=== PATIENT | female | born 1990 | race American Indian/Alaskan Native ===

== ENCOUNTER 2017-11-08 23:33 | Emergency (ER) | payer MEDICAID ==
[2017-11-09 02:24] LABS: Basophils # (Auto) 0.1 K/mm3 (0.0-0.1); Basophils % (Auto) 0.8 % (0.0-1.8); Eosinophils # (Auto) 0.1 K/mm3 (0.0-0.4); Eosinophils % (Auto) 0.9 % (0.0-4.3); Hematocrit 38.9 % (30.3-42.9); Hemoglobin 13.1 gm/dl (10.1-14.3); Lymphocytes # (Auto) 2.6 K/mm3 (1.2-5.4); Lymphocytes % (Auto) 35.7 % (13.4-35.0); Mean Corpuscular HGB Conc 34 % (30-34); Mean Corpuscular Hemoglobin 29 pg (28-32); Mean Corpuscular Volume 87 fl (79-97); Monocytes # (Auto) 0.8 K/mm3 (0.0-0.8); Monocytes % (Auto) 11.1 % (0.0-7.3); Platelet Count 293 K/mm3 (140-440); Red Blood Count 4.49 M/mm3 (3.65-5.03); Red Cell Distribution Width 13.7 % (13.2-15.2)
[2017-11-09 03:59] VITALS: BP 126/87
[2017-11-09 04:41] LABS: Bacteria,Urine 1+ /HPF (Negative); Bilirubin,Urine NEG (Negative); Blood,Urine SM (Negative); Color,Urine Yellow (Yellow); Mucus,Urine FEW /HPF; Protein,Urine <15 mg/dL mg/dL (Negative); WBC,Urine < 1.0 /HPF (0.0-6.0)
[2017-11-09 09:14] LABS: BUN/Creatinine Ratio 5; Blood Urea Nitrogen 4 mg/dL (7-17); Calcium 9.5 mg/dL (8.4-10.2); Hemolysis Index 13
--- NOTE | 2017-11-09 09:36 | Ultrasound Report ---
ULTRASOUND OB LESS THAN 14 WEEKS - TRANSABDOMINAL AND TRANSVAGINAL INDICATION: Vaginal bleeding. Serum beta-hCG 8,527 units. COMPARISON: None similar at this institution. FINDINGS: Transabdominal and transvaginal pelvic sonography performed in this patient with LMP of 09/28/2017 and estimated menstrual age of 6 weeks and 0 days. A 9.4 x 5.1 x 5.9 cm retroverted uterus demonstrates a single cystic focus along the endometrium without evidence of a pole at this time. Small yolk sac possible. Mean gestational sac diameter of 1.2 cm corresponds to 6 weeks and zero days. Approximately 1.8 x 0.5 x 1.5 cm heterogeneity inferior to the gestational sac may represent a subchorionic hemorrhage, endovaginal image 15. Minimal pelvic free fluid. Right ovary is 3 x 2.1 x 1.9 cm with an intrinsic 2.1 x 1.8 cm thickwalled cyst, endovaginal image 21, possibly the corpus luteum. Unremarkable 2.4 x 2 x 2 cm left ovary. CONCLUSION: 1. Sonographic findings may represent an intrauterine gestational sac/early estimated at 6 weeks and zero days with an EDC of 07/05/2018, though a missed not entirely excluded at this time as viability has not been confirmed. 2. Right ovarian cyst. Please also correlate clinically, with serial serum beta-hCG values and/or followup sonogram, as warranted. Thank you for the opportunity to participate in this patient's care.
--- NOTE | 2017-11-09 09:56 | Emergency Department Report ---
ED HPI - General Chief complaint: Vaginal Bleeding Stated complaint: VAG BLEEDING; 6WKS GEST Time Seen by Provider: 11/09/17 08:11 Source: patient Mode of arrival: Ambulatory Limitations: No Limitations - History of Present Illness Initial comments: This is a 27-year-old female nontoxic, well nourished in appearance, no acute signs of distress presents to the ED with c/o of vaginal bleeding. Patient stated she had a sexual intercourse last night around 2300 and then had 1 episode so light vaginal bleeding. Patient currently denies any vaginal bleeding. Patient stated she is currently 6 weeks . Patient stated roy seen a [facility] with normal exa patient denies any abdominal pain, back pain, fever, chills, nausea, vomiting, chest pain or shortness of breath. Patient denies past medical history. MD Complaint: vaginal bleeding -: Last night Radiation: none Severity scale (0 -10): 0 Consistency: now resolved Improves with: none Worsens with: none Associated symptoms: vaginal bleeding. denies: nausea/vomiting, vaginal discharge, abdominal pain, dysuria, headache, vision changes, malaise, dysparuenia, rash, seizure, shortness of breath, syncope, weakness Vaginal bleeding: none :: Yes Number of weeks : 6 OB History - Current : no complications OB History - Previous Pregnancies: no complications Pre- care: followed by OB - Related Data : 4 Para: 1 Home Medications Medication Instructions Recorded Confirmed Last Taken No Known Home Medications [No 09/08/15 09/08/15 Unknown Reported Home Medications] Allergies Allergy/AdvReac Type Severity Reaction Status Date / Time fluoxetine HCl [From Prozac] Allergy ringing in Verified 08/18/15 11:46 ears promethazine HCl Allergy Shortness Verified 08/18/15 11:46 [From Phenergan] of Breath ED Review of Systems ROS: Stated complaint: VAG BLEEDING; 6WKS GEST Other details as noted in HPI Constitutional: denies: chills, fever Eyes: denies: eye pain, eye discharge, vision change ENT: denies: ear pain, throat pain Respiratory: denies: cough, shortness of breath, wheezing Cardiovascular: denies: chest pain, palpitations Endocrine: no symptoms reported Gastrointestinal: denies: abdominal pain, nausea, diarrhea Genitourinary: denies: urgency, dysuria, discharge Musculoskeletal: denies: back pain, joint swelling, arthralgia Skin: denies: rash, lesions Neurological: denies: headache, weakness, paresthesias Psychiatric: denies: anxiety, depression Hematological/Lymphatic: denies: easy bleeding, easy bruising ED Past Medical Hx - Past Medical History Previous Medical History?: Yes Hx Hypertension: No Hx GERD: Yes Hx Renal Disease: No Hx Seizures: No Hx Asthma: No - Surgical History Past Surgical History?: Yes Additional Surgical History: c section, - Social History Smoking Status: Never Smoker Substance Use Type: None - Medications Home Medications: Home Medications Medication Instructions Recorded Confirmed Last Taken Type No Known Home Medications [No 09/08/15 09/08/15 Unknown History Reported Home Medications] ED Physical Exam - General Limitations: No Limitations General appearance: alert, in no apparent distress - Head Head exam: Present: atraumatic, normocephalic - Eye Eye exam: Present: normal appearance Pupils: Present: normal accommodation - ENT ENT exam: Present: normal exam, mucous membranes moist - Neck Neck exam: Present: normal inspection, full ROM - Respiratory Respiratory exam: Present: normal lung sounds bilaterally. Absent: respiratory distress, wheezes, rales, rhonchi, stridor - Cardiovascular Cardiovascular Exam: Present: regular rate, normal rhythm, normal heart sounds. Absent: irregular rhythm, systolic murmur, diastolic murmur, rubs, gallop - GI/Abdominal GI/Abdominal exam: Present: soft, normal bowel sounds. Absent: distended, tenderness, guarding, rebound, rigid, diminished bowel sounds - Extremities Exam Extremities exam: Present: normal inspection, full ROM - Back Exam Back exam: Present: normal inspection, full ROM. Absent: tenderness, CVA tenderness (R), CVA tenderness (L), muscle spasm, paraspinal tenderness, vertebral tenderness, rash noted - Neurological Exam Neurological exam: Present: alert, oriented X3, normal gait - Psychiatric Psychiatric exam: Present: normal affect, normal mood - Skin Skin exam: Present: warm, dry, intact, normal color. Absent: rash ED Course Vital Signs 11/09/17 11/09/17 11/09/17 00:43 01:52 03:58 Temperature 97.9 F 97.9 F 97.7 F Pulse Rate 92 H 92 H 85 Respiratory 18 18 12 Rate Blood Pressure 114/71 114/71 126/87 O2 Sat by Pulse 100 100 100 Oximetry - Reevaluation(s) Reevaluation #1: 11/09/17 09:55 Patient is speaking in full sentences with no signs of distress noted. ED Medical Decision Making - Lab Data Result diagrams: 11/09/17 02:06 11/09/17 02:04 - Medical Decision Making This is a 27-year-old female that presents with threatened miscarriage. Patient is stable and was examined by me. Ultrasound has been obtained and detailed by the radiologist with normal IUP with estimated 6 weeks 0 days. Quantitative serum test of 8500. Patient was notified of the report with noted by the patient. Patient was instructed to return and 2 days for a reevaluation of serum quantitative test and possible ultrasound. Patient was instructed to refer to Follow-up with a [facility] in 2 days or if symptoms worsen and continue return to emergency room as soon as possible. At time of discharge , the patient does not seem toxic or ill in appearance. No acute signs of distress noted. Patient agrees to discharge treatment plan of care. No further questions noted by the patient. Critical care attestation.: If time is entered above; I have spent that time in minutes in the direct care of this critically ill patient, excluding procedure time. ED Disposition Clinical Impression: Threatened miscarriage Disposition: DC-01 TO HOME OR SELFCARE Is pt being admited?: No Does the pt Need Aspirin: No Condition: Stable Instructions: Threatened Miscarriage (ED) Additional Instructions: Follow-up with a [facility] in 2 days or if symptoms worsen and continue return to emergency room as soon as possible. Your quantitative serum test today is 8527. Referrals: PRIMARY MD YVAN [Primary Care Provider] - 3-5 Days [facility] [Outside] - 3-5 Days LUIS FELIPE MONTENEGRO MD [Staff Physician] - 2-3 Days [facility] [Provider Group] - 2-3 Days Forms: Work/School Release Form(ED)
== END 2017-11-09 10:10 | disposition home or self-care (01) ==
LOC: ED 23:33
DX: O20.0 Threatened abortion (principal); Z3A.01 Less than 8 weeks gestation of pregnancy; K21.9 Gastro-esophageal reflux disease without esophagitis
CPT/HCPCS: 36415; 76801; 76817; 80048; 81001; 84702; 85025; 86850; 86900; 86901; 99284

== ENCOUNTER 2020-11-17 15:42 | Emergency (ER) | payer SELFPAY ==
[2020-11-17 16:10] VITALS: BP 136/77
[2020-11-17] MEDS ORDERED: ONDANSETRON 4 MG ODT TAB PO ONE (16:22)
[2020-11-17] MEDS ORDERED: ACETAMINOPHEN 325 MG TAB PO ONE (16:22)
--- NOTE | 2020-11-17 16:23 | Emergency Department Report ---
<SALVADOR BECKHAM - Last Filed: 11/17/20 18:35> ED Female HPI - General Chief complaint: Vaginal Bleeding Stated complaint: LATE CYCLE/CRAMPING AND BLEEDING Source: patient Mode of arrival: Ambulatory Limitations: No Limitations - History of Present Illness Initial comments: 30-year-old female presents to the ER today with complaints of abdominal cr amping. Patient states that his symptoms started yesterday. She reports intermittent cramping in her lower abdomen, in the lower back and epigastric area. She reports nausea but no vomiting. She reports urinary frequency but no dysuria. She reports mild white discharge, and yesterday she started with vaginal spotting. She states that her last menstrual cycle was October 14, 2020. She states that she is 4 days late for her menstrual cycle. She did take a home test and it was faintly positive. She states that she is at the same sexual partner and denies any concern for STDs. She is G8, P1, AB 6. MD Complaint: vaginal bleeding, other (Abd pain) - Related Data Home Medications Medication Instructions Recorded Confirmed Last Taken Phentermine HCl [Adipex-P] 37.5 mg PO QAM 04/07/18 04/07/18 04/04/18 Previous Rx's Medication Instructions Recorded Last Taken Type Sennosides/Docusate [Senokot S] 2 tab PO DAILY #60 tablet 04/08/18 Unknown Rx Ibuprofen [Motrin] 600 mg PO Q8H PRN #30 tablet 11/17/20 Unknown Rx Ondansetron [Zofran Odt] 4 mg PO Q8HR PRN #15 tab.rapdis 11/17/20 Unknown Rx cephALEXin [Keflex] 500 mg PO Q8HR #21 cap 11/17/20 Unknown Rx Allergies Allergy/AdvReac Type Severity Reaction Status Date / Time fluoxetine HCl [From Prozac] Allergy ringing in Verified 11/17/20 16:04 ears promethazine HCl Allergy Shortness Verified 11/17/20 16:04 [From Phenergan] of Breath ED Review of Systems Comment: All other systems reviewed and negative Constitutional: denies: chills, fever ENT: denies: ear pain, throat pain Respiratory: denies: cough, shortness of breath, SOB with exertion, SOB at rest, wheezing Cardiovascular: denies: chest pain, palpitations, edema, syncope, paroxysmal nocturnal dyspnea Endocrine: no symptoms reported Gastrointestinal: abdominal pain, nausea. denies: vomiting, diarrhea, constipation, hematemesis, melena, hematochezia Genitourinary: frequency, abnormal menses. denies: urgency, dysuria, hematuria, discharge Skin: denies: rash, lesions, change in color, change in hair/nails, pruritus Neurological: denies: headache, weakness, paresthesias Psychiatric: denies: anxiety, depression, auditory hallucinations, visual hallucinations, homicidal thoughts, suicidal thoughts Hematological/Lymphatic: denies: easy bleeding, easy bruising ED Past Medical Hx - Past Medical History Hx Hypertension: No Hx GERD: Yes Hx Renal Disease: No Hx Seizures: No Hx Asthma: No - Surgical History Additional Surgical History: c section, / LIPOSUCTION - Social History Smoking Status: Current Every Day Smoker Substance Use Type: Alcohol, Marijuana - Medications Home Medications: Home Medications Medication Instructions Recorded Confirmed Last Taken Type Phentermine HCl [Adipex-P] 37.5 mg PO QAM 04/07/18 04/07/18 04/04/18 History Sennosides/Docusate [Senokot S] 2 tab PO DAILY #60 tablet 04/08/18 Unknown Rx Ibuprofen [Motrin] 600 mg PO Q8H PRN #30 tablet 11/17/20 Unknown Rx Ondansetron [Zofran Odt] 4 mg PO Q8HR PRN #15 tab.rapdis 11/17/20 Unknown Rx cephALEXin [Keflex] 500 mg PO Q8HR #21 cap 11/17/20 Unknown Rx ED Physical Exam - General Limitations: No Limitations General appearance: alert, in no apparent distress - Head Head exam: Present: atraumatic, normocephalic, normal inspection - Eye Eye exam: Present: normal appearance, PERRL, EOMI Pupils: Present: normal accommodation - Respiratory Respiratory exam: Present: normal lung sounds bilaterally. Absent: respiratory distress - Cardiovascular Cardiovascular Exam: Present: regular rate, normal rhythm, normal heart sounds - GI/Abdominal GI/Abdominal exam: Present: soft. Absent: distended, tenderness, guarding, rebound - Neurological Exam Neurological exam: Present: alert, oriented X3, CN II-XII intact, normal gait - Psychiatric Psychiatric exam: Present: normal affect, normal mood - Skin Skin exam: Present: intact ED Medical Decision Making - Lab Data Result diagrams: 11/17/20 16:26 11/17/20 16:26 - Medical Decision Making Labs reviewed, -- CBC and CMP unremarkable; quant hCG negative. Urinalysis is concerning for UTI; urine culture is pending. Discussed lab results with patient. Repeat abdominal exam shows soft nontender abdomen. Patient is well- appearing, nontoxic and not in any acute distress.The history, exam, diagnostic testing and current condition do not suggest acute appendicitis, bowel obstruction, acute cholecystitis, bowel perforation, major GI bleed, severe diverticulitis, abdominal aortic aneurysm, mesenteric ischemia, volvulus, PID , ovarian torsion or sepsis or other significant pathology to warrant further testing, continued ED treatment, admission or surgical evaluation at this point. Discussed suspected diagnosis and treatment plan with patient recommend patient follows up with a primary care doctor. Patient was stable at time of discharge. ED Disposition Clinical Impression: Pyuria, Abdominal cramping Disposition: - TO HOME OR SELFCARE Is pt being admited?: No Does the pt Need Aspirin: No Condition: Stable Instructions: Menstruation, Abdominal Pain, Adult, Igim-hy-Exsc, Urinary Tract Infection, Adult Additional Instructions: Take the motrin as prescribed. Take the anitbiotics as prescribed. Take the zofran as prescribed. Follow up with PCP listed on your d/c instructions. Return to ED if symptoms changes or worsens in anyway. Prescriptions: cephALEXin [Keflex] 500 mg PO Q8HR #21 cap Ibuprofen [Motrin] 600 mg PO Q8H PRN #30 tablet PRN Reason: Pain Ondansetron [Zofran Odt] 4 mg PO Q8HR PRN #15 tab.rapdis PRN Reason: Nausea Referrals: KEELEY SUNSHINE MD [Staff Physician] - 7-10 days Forms: Work/School Release Form(ED) Time of Disposition: 18:20 <CESAR HINOJOSA - Last Filed: 11/17/20 18:52> ED Review of Systems ROS: Stated complaint: LATE CYCLE/CRAMPING AND BLEEDING Other details as noted in HPI ED Course Vital Signs 11/17/20 16:08 Temperature 97.9 F Pulse Rate 103 H Respiratory 18 Rate Blood Pressure 136/77 O2 Sat by Pulse 99 Oximetry ED Medical Decision Making - Lab Data Result diagrams: 11/17/20 16:26 11/17/20 16:26 Critical care attestation.: If time is entered above; I have spent that time in minutes in the direct care of this critically ill patient, excluding procedure time. ED Disposition Is pt being admited?: No Does the pt Need Aspirin: No
[2020-11-17 16:52] LABS: Basophils % (Auto) 0.5 % (0.0-1.8); Eosinophils % (Auto) 0.5 % (0.0-4.3); Hemoglobin 14.1 gm/dl (10.1-14.3); Lymphocytes # (Auto) 2.4 K/mm3 (1.2-5.4); Lymphocytes % (Auto) 37.3 % (13.4-35.0); Mean Corpuscular HGB Conc 34 % (30-34); Mean Corpuscular Volume 92 fl (79-97); Monocytes # (Auto) 0.7 K/mm3 (0.0-0.8); Monocytes % (Auto) 10.4 % (0.0-7.3); Platelet Count 281 K/mm3 (140-440); Red Blood Count 4.58 M/mm3 (3.65-5.03); Red Cell Distribution Width 13.9 % (13.2-15.2)
[2020-11-17 17:13] LABS: Alanine Aminotransferase 14 units/L (7-56); Albumin 4.3 g/dL (3.9-5); BUN/Creatinine Ratio 11; Blood Urea Nitrogen 9 mg/dL (7-17); Calcium 9.2 mg/dL (8.4-10.2); Hemolysis Index 5
[2020-11-17 17:53] LABS: Bilirubin,Urine NEG (Negative); Blood,Urine LG (Negative); Color,Urine Yellow (Yellow); Mucus,Urine FEW /HPF; Protein,Urine <15 mg/dL mg/dL (Negative)
== END 2020-11-17 18:35 | disposition home or self-care (01) ==
LOC: ED 15:42
DX: R82.81 Pyuria (principal); R10.30 Lower abdominal pain, unspecified; K21.9 Gastro-esophageal reflux disease without esophagitis; F12.90 Cannabis use, unspecified, uncomplicated; F17.200 Nicotine dependence, unspecified, uncomplicated; Z79.899 Other long term (current) drug therapy; Z88.8 Allergy status to other drugs, medicaments and biological substances; Z98.890 Other specified postprocedural states
CPT/HCPCS: 36415; 80053; 81001; 84702; 85025; 85461; 86850; 86900; 86901; 87086; Q0162

== ENCOUNTER 2021-01-20 20:48 | Emergency (ER) | payer SELFPAY ==
[2021-01-20 21:46] VITALS: BP 109/74
[2021-01-21] MEDS ORDERED: traMADol 50 MG TAB PO ONE (01:23)
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
== END 2021-01-21 02:43 | disposition home or self-care (01) ==
LOC: ED 20:48
DX: S16.1XXA Strain of muscle, fascia and tendon at neck level, initial encounter (principal); K21.9 Gastro-esophageal reflux disease without esophagitis; F17.200 Nicotine dependence, unspecified, uncomplicated; F12.90 Cannabis use, unspecified, uncomplicated; Z72.89 Other problems related to lifestyle; Z88.8 Allergy status to other drugs, medicaments and biological substances; Z79.899 Other long term (current) drug therapy; V87.7XXA Person injured in collision between other specified motor vehicles (traffic), initial encounter; Y93.89 Activity, other specified; Y92.488 Other paved roadways as the place of occurrence of the external cause; Y99.8 Other external cause status
CPT/HCPCS: 72040; 99283

== ENCOUNTER 2021-05-01 13:26 | Emergency (ER) | payer SELFPAY ==
[2021-05-01 14:28] VITALS: BP 126/71
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
== END 2021-05-01 16:03 | disposition home or self-care (01) ==
LOC: ED 13:26
DX: S16.1XXA Strain of muscle, fascia and tendon at neck level, initial encounter (principal); M79.602 Pain in left arm; E66.9 Obesity, unspecified; K21.9 Gastro-esophageal reflux disease without esophagitis; Z98.890 Other specified postprocedural states; F17.290 Nicotine dependence, other tobacco product, uncomplicated; Z88.8 Allergy status to other drugs, medicaments and biological substances; V89.2XXA Person injured in unspecified motor-vehicle accident, traffic, initial encounter; Y93.89 Activity, other specified; Y92.89 Other specified places as the place of occurrence of the external cause; Y99.8 Other external cause status
CPT/HCPCS: 99281

== ENCOUNTER 2021-08-20 21:56 | Emergency (ER) | payer SELFPAY ==
[2021-08-21] MEDS ORDERED: AMOXICILLIN/K CLAV 875/125MG TAB PO ONE (00:22)
[2021-08-21] MEDS ORDERED: ONDANSETRON 4 MG ODT TAB PO ONE (00:22)
[2021-08-21] MEDS ORDERED: predniSONE 50 MG TAB PO ONE (00:22)
[2021-08-21] MEDS ORDERED: IBUPROFEN 600 MG TAB PO ONE (00:22)
--- NOTE | 2021-08-21 00:30 | Emergency Department Report ---
ED General Adult HPI - General Chief complaint: Sore Throat Stated complaint: SWOLLEN NECK Source: patient Mode of arrival: Ambulatory Limitations: No Limitations - History of Present Illness Initial comments: Patient is a 31-year-old -[place] female with a history of GERD who presents to the ED with complaint of acute onset persistent bilateral ear pain, anterior cervical lymph node pain, mild sore throat, nasal and sinus congestion for the last 3 days. Patient states that symptoms have worsened in the last 12 hours. Patient denies dizziness, syncope, cough, fever, chills, nausea and vomiting, cough, abdominal pain, headache, diarrhea, dysuria, urinary frequency and urgency or low back pain. MD Complaint: Sore throat; swollen cervical lymph nodes, bilateral ear pain -: Sudden, days(s) (3) Location: face, neck Radiation: non-radiation Severity scale (0 -10): 7 Quality: aching, sharp Consistency: constant Improves with: none Worsens with: none Associated Symptoms: denies other symptoms, headaches, loss of appetite, malaise. denies: confusion, chest pain, cough, diaphoresis, fever/chills, nausea/vomiting, rash, seizure, shortness of breath, syncope, weakness Treatments Prior to Arrival: none - Related Data Home Medications Medication Instructions Recorded Confirmed Last Taken Phentermine HCl [Adipex-P] 37.5 mg PO QAM 04/07/18 04/07/18 04/04/18 Previous Rx's Medication Instructions Recorded Last Taken Type Sennosides/Docusate [Senokot S] 2 tab PO DAILY #60 tablet 04/08/18 Unknown Rx Ibuprofen [Motrin] 600 mg PO Q8H PRN #30 tablet 11/17/20 Unknown Rx Ondansetron [Zofran Odt] 4 mg PO Q8HR PRN #15 tab.rapdis 11/17/20 Unknown Rx cephALEXin [Keflex] 500 mg PO Q8HR #21 cap 11/17/20 Unknown Rx Cyclobenzaprine [Flexeril] 10 mg PO TID PRN #10 tablet 01/21/21 Unknown Rx Menthol/Camphor [Bowman [place] 1 applicatio TP Q6H PRN #1 tube 01/21/21 Unknown Rx Ointment] Naproxen 500 mg PO 1XW #30 tablet 01/21/21 Unknown Rx Ibuprofen [Motrin 800 MG tab] 800 mg PO Q8HR PRN #21 tablet 05/01/21 Unknown Rx tiZANidine [Zanaflex 4mg TAB] 4 mg PO Q8H PRN #12 tablet 05/01/21 Unknown Rx Amoxicillin/Potassium Clav 1 each PO Q12H #20 08/21/21 Unknown Rx [Augmentin 875-125 Tablet] Ibuprofen [Motrin] 800 mg PO Q8HR PRN #30 tablet 08/21/21 Unknown Rx Ondansetron [Zofran Odt] 4 mg PO Q8HR PRN #15 tab.rapdis 08/21/21 Unknown Rx predniSONE [Deltasone] 40 mg PO QDAY #10 tab 08/21/21 Unknown Rx Allergies Allergy/AdvReac Type Severity Reaction Status Date / Time fluoxetine HCl [From Prozac] Allergy ringing in Verified 11/17/20 16:04 ears promethazine HCl Allergy Shortness Verified 11/17/20 16:04 [From Phenergan] of Breath ED Review of Systems ROS: Stated complaint: SWOLLEN NECK Other details as noted in HPI Constitutional: denies: chills, fever Eyes: denies: eye pain, eye discharge, vision change ENT: throat pain, congestion. denies: ear pain Respiratory: denies: cough, shortness of breath, wheezing Cardiovascular: denies: chest pain, palpitations Endocrine: no symptoms reported Gastrointestinal: denies: abdominal pain, nausea, diarrhea Genitourinary: denies: urgency, dysuria, discharge Musculoskeletal: denies: back pain, joint swelling, arthralgia Skin: denies: rash, lesions Neurological: denies: headache, weakness, paresthesias Psychiatric: denies: anxiety, depression Hematological/Lymphatic: denies: easy bleeding, easy bruising ED Past Medical Hx - Past Medical History Previous Medical History?: Yes Hx Hypertension: No Hx GERD: Yes Hx Renal Disease: No Hx Seizures: No Hx Asthma: No - Surgical History Past Surgical History?: Yes Additional Surgical History: c section, / LIPOSUCTION - Social History Smoking Status: Current Some Day Smoker Substance Use Type: Alcohol, Marijuana - Medications Home Medications: Home Medications Medication Instructions Recorded Confirmed Last Taken Type Phentermine HCl [Adipex-P] 37.5 mg PO QAM 04/07/18 04/07/18 04/04/18 History Sennosides/Docusate [Senokot S] 2 tab PO DAILY #60 tablet 04/08/18 Unknown Rx Ibuprofen [Motrin] 600 mg PO Q8H PRN #30 tablet 11/17/20 Unknown Rx Ondansetron [Zofran Odt] 4 mg PO Q8HR PRN #15 tab.rapdis 11/17/20 Unknown Rx cephALEXin [Keflex] 500 mg PO Q8HR #21 cap 11/17/20 Unknown Rx Cyclobenzaprine [Flexeril] 10 mg PO TID PRN #10 tablet 01/21/21 Unknown Rx Menthol/Camphor [Bowman [place] 1 applicatio TP Q6H PRN #1 tube 01/21/21 Unknown Rx Ointment] Naproxen 500 mg PO 1XW #30 tablet 01/21/21 Unknown Rx Ibuprofen [Motrin 800 MG tab] 800 mg PO Q8HR PRN #21 tablet 05/01/21 Unknown Rx tiZANidine [Zanaflex 4mg TAB] 4 mg PO Q8H PRN #12 tablet 05/01/21 Unknown Rx Amoxicillin/Potassium Clav 1 each PO Q12H #20 08/21/21 Unknown Rx [Augmentin 875-125 Tablet] Ibuprofen [Motrin] 800 mg PO Q8HR PRN #30 tablet 08/21/21 Unknown Rx Ondansetron [Zofran Odt] 4 mg PO Q8HR PRN #15 tab.rapdis 08/21/21 Unknown Rx predniSONE [Deltasone] 40 mg PO QDAY #10 tab 08/21/21 Unknown Rx ED Physical Exam - General Limitations: No Limitations General appearance: alert, in no apparent distress - Head Head exam: Present: atraumatic, normocephalic, normal inspection - Eye Eye exam: Present: normal appearance, PERRL, EOMI Pupils: Present: normal accommodation - ENT ENT exam: Present: normal orophraynx, mucous membranes moist, normal external ear exam, other (Erythematous bulging bilateral tympanic membranes; grossly congested nasal passages) - Neck Neck exam: Present: normal inspection, full ROM, lymphadenopathy (Palpable bilateral anterior cervical lymphadenopathy) - Respiratory Respiratory exam: Present: normal lung sounds bilaterally. Absent: respiratory distress, wheezes, rales, rhonchi, chest wall tenderness - Cardiovascular Cardiovascular Exam: Present: regular rate, normal rhythm, normal heart sounds. Absent: systolic murmur, diastolic murmur, rubs, gallop - GI/Abdominal GI/Abdominal exam: Present: soft, normal bowel sounds. Absent: tenderness, guarding, rebound, hyperactive bowel sounds, hypoactive bowel sounds, organomegaly, mass - Extremities Exam Extremities exam: Present: normal inspection, full ROM, normal capillary refill - Back Exam Back exam: Present: normal inspection, full ROM. Absent: tenderness, CVA tenderness (L), muscle spasm, paraspinal tenderness, vertebral tenderness - Neurological Exam Neurological exam: Present: alert, oriented X3, CN II-XII intact, normal gait, reflexes normal - Psychiatric Psychiatric exam: Present: normal affect, normal mood - Skin Skin exam: Present: warm, dry, intact, normal color. Absent: rash ED Course Vital Signs 08/20/21 21:59 Temperature 98.3 F Pulse Rate 89 Respiratory 17 Rate Blood Pressure 130/98 O2 Sat by Pulse 100 Oximetry ED Medical Decision Making - Medical Decision Making This is a 31-year-old -[place] female with a history of GERD who presents to the ED with complaint of acute onset persistent bilateral ear pain, anterior cervical lymph node pain, mild sore throat, nasal and sinus congestion for the last 3 days. Patient states that symptoms have worsened in the last 12 hours. In the ED, patient is alert and oriented x3 and is not in any distress. Patient was treated for pain in the ED and also given initial oral antibiotics in the ED. On reevaluation, patient's pain is well controlled medication. Patient was discharged home on medications and advised to follow-up with her primary care physician in 7 to 10 days for reevaluation or return to the ED immediately if symptoms get worse. - Differential Diagnosis acute otitis media; pharyngitis; Lymphadenopathy; UTI Critical care attestation.: If time is entered above; I have spent that time in minutes in the direct care of this critically ill patient, excluding procedure time. ED Disposition Clinical Impression: Acute bacterial pharyngitis, Acute otitis media with effusion of both ears, Lymphadenopathy, anterior cervical Disposition: HOME / SELF CARE / HOMELESS Is pt being admited?: No Does the pt Need Aspirin: No Condition: Stable Instructions: Otitis Media, Adult, [id number], Pharyngitis, [id number], Lymphadenopathy Additional Instructions: Take medication with food, drink plenty of fluids and follow-up with your primary care physician in 7 to 10 days for reevaluation. Return to the ED immediately if symptoms get worse Prescriptions: Amoxicillin/Potassium Clav [Augmentin 875-125 Tablet] 1 each PO Q12H #20 predniSONE [Deltasone] 40 mg PO QDAY #10 tab Ibuprofen [Motrin] 800 mg PO Q8HR PRN #30 tablet PRN Reason: Pain , Severe (7-10) Ondansetron [Zofran Odt] 4 mg PO Q8HR PRN #15 tab.rapdis PRN Reason: Nausea Referrals: [facility] [Provider Group] - 7-10 days Forms: Work/School Release Form(ED) Time of Disposition: 00:38 Print Language: UKRAINIAN
[2021-08-21 01:22] VITALS: BP 116/78
== END 2021-08-21 01:19 | disposition home or self-care (01) ==
LOC: ED 21:56
DX: H65.193 Other acute nonsuppurative otitis media, bilateral (principal); K21.9 Gastro-esophageal reflux disease without esophagitis; F17.200 Nicotine dependence, unspecified, uncomplicated; F12.10 Cannabis abuse, uncomplicated; R59.1 Generalized enlarged lymph nodes; Z20.9 Contact with and (suspected) exposure to unspecified communicable disease
CPT/HCPCS: 99282; J7512; J3490; Q0162